=== PATIENT | male | born 1945 | race Caucasian/White ===

== ENCOUNTER 2018-07-14 11:39 | Emergency (ER) | payer MEDICARE, BC ==
[2018-07-14 11:55] VITALS: TEMP 98.2
[2018-07-14] MEDS ORDERED: SODIUM CHLORIDE 0.9% 1,000 ML IV STA (12:12)
--- NOTE | 2018-07-14 12:16 | ED ---
General Adult HPI - General Chief complaint: Recheck/Abnormal Lab/Rx Stated complaint: high blood sugar Source: patient Mode of arrival: EMS Limitations: no limitations - History of Present Illness Initial comments: Dictation was produced using [employer] dictation software. please excuse any grammatical, word or spelling errors. Chief Complaint: 73-year-old male presents with generalized weakness, elevated blood sugar and vision loss. History of Present Illness: Patient is 73-year-old male who recently had a ventral hernia surgery with mesh placement. Patient was put on a course of ciprofloxacin. Patient states he had a benign postoperative course. There was concern about possible infection along the lateral aspects of the surgery. He was put on a 7 day course of ciprofloxacin. Over the course of being on ciprofloxacin he complained of generalized weakness, vision loss. EMS was called for severe weakness and vision loss. Initial blood sugar was obtained showing above 600. Patient has history of diabetes however it's been well- controlled with dietary restrictions and basic medications. Patient states that yesterday his vision has been getting blurry. He is normally 20/20 vision. The ROS documented in this emergency department record has been reviewed and confirmed by me. Those systems with pertinent positive or negative responses have been documented in the HPI. All other systems are other negative and/or noncontributory. - Related Data Home Medications Medication Instructions Recorded Confirmed Alfuzosin HCl [Alfuzosin HCl ER] 10 mg PO DAILY 02/11/15 07/14/18 Atorvastatin [Lipitor] 40 mg PO HS 02/11/15 07/14/18 Eszopiclone [Lunesta] 3 mg PO HS 02/11/15 07/14/18 Fenofibrate Nanocrystallized 48 mg PO HS 02/11/15 07/14/18 [Fenofibrate] Montelukast [Singulair] 10 mg PO HS 02/11/15 07/14/18 Folic Acid 0.4 mg PO DAILY 02/12/15 07/14/18 Aspirin 81 mg PO DAILY 08/19/15 07/14/18 Acetaminophen Tab [Tylenol Tab] 1,000 mg PO Q6HR 07/14/18 07/14/18 Amiodarone [Cordarone] 200 mg PO Q12H 07/14/18 07/14/18 Co Q 10 50mg 1 cap PO DAILY 07/14/18 07/14/18 Diazepam [Valium] 5 mg PO Q8HR PRN 07/14/18 07/14/18 Metoprolol Succinate (ER) [Toprol 100 mg PO BID 07/14/18 07/14/18 Xl] Multivitamin,Therapeutic [Thera] 1 tab PO DAILY 07/14/18 07/14/18 Nitroglycerin Sl Tabs [Nitrostat] 0.4 mg SUBLINGUAL Q5M PRN 07/14/18 07/14/18 Polyethylene Glycol 3350 [Clearlax] 17 gm PO DAILY PRN 07/14/18 07/14/18 diphenhydrAMINE [Benadryl] 25 mg PO Q6HR PRN 07/14/18 07/14/18 hydrALAZINE HCL [Apresoline] 25 mg PO Q8H 07/14/18 07/14/18 metFORMIN HCL 1,000 mg PO BID 07/14/18 07/14/18 oxyCODONE HCL [OxyIR] 5 mg PO Q4H PRN 07/14/18 07/14/18 traMADol HCL [Ultram] 50 mg PO Q6HR PRN 07/14/18 07/14/18 Previous Rx's Medication Instructions Recorded Thiamine [Vitamin B-1] 100 mg PO DAILY@1200 #30 tab 02/22/15 Allergies Allergy/AdvReac Type Severity Reaction Status Date / Time Iodinated Contrast- Oral and Allergy Unknown Verified 07/14/18 12:06 IV Dye [Iodinated Contrast Media - IV Dye] Sulfa (Sulfonamide Allergy NAUSEA,VOMI Verified 07/14/18 12:06 Antibiotics) TING Review of Systems ROS Statement: Those systems with pertinent positive or pertinent negative responses have been documented in the HPI. ROS Other: All systems not noted in ROS Statement are negative. Past Medical History Past Medical History: Atrial Fibrillation, Coronary Artery Disease (CAD), Diabetes Mellitus, GERD/Reflux, Hearing Disorder / Deafness, Hyperlipidemia, Hypertension, Myocardial Infarction ([place]), Osteoarthritis (OA), Prostate Disorder , Seizure Disorder, Sleep Apnea/CPAP/BIPAP Additional Past Medical History / Comment(s): CPAP. RENAL CALCULI, LAST SEIZURE 1982 Last Myocardial Infarction Date:: 2004 History of Any Multi-Drug Resistant Organisms: None Reported Past Surgical History: Back Surgery, Heart Catheterization With Stent Additional Past Surgical History / Comment(s): REVERSAL OF COLOSTOMY. OTHER HX: Additional surgical hx: Kidney stone operation; multiple cystoscopies. Past Anesthesia/Blood Transfusion Reactions: No Reported Reaction Date of Last Stent Placement:: 2004 Past Psychological History: Anxiety Smoking Status: Former smoker - Past Family History Mother Family Medical History: No Reported History Father Family Medical History: Coronary Artery Disease (CAD) Daughter(s) Family Medical History: Hypertension Son(s) Family Medical History: Deep Vein Thrombosis (DVT) Brother(s) Family Medical History: Coronary Artery Disease (CAD), Diabetes Mellitus General Exam - General Exam Comments Initial Comments: PHYSICAL EXAM: General Impression: Alert and oriented x3, not in acute distress, pale HEENT: Normocephalic atraumatic, extra-ocular movements intact, pupils equal and reactive to light bilaterally, mucous membranes moist. Cardiovascular: Heart regular rate and rhythm, S1&S2 audible, no murmurs, rubs or gallops Chest: Lungs clear to auscultation bilaterally, no rhonchi, no wheeze, no rales Abdomen: Bowel sounds present, abdomen soft, non-tender, non-distended, no organomegaly, surgical site clean dry and intact, abdomen soft without any signs of erythema or fluctuant masses Musculoskeletal: Pulses present and equal in all extremities, no peripheral edema Motor: Moves all tremors grossly Neurological: CN II-XII grossly intact, no focal motor or sensory deficits noted Skin: Intact with no visualized rashes Psych: Normal affect and mood Limitations: no limitations Course Vital Signs 07/14/18 07/14/18 11:48 13:42 Temperature 98.2 F Pulse Rate 55 L 58 L Respiratory 16 18 Rate Blood Pressure 149/68 151/66 O2 Sat by Pulse 93 L 96 Oximetry Medical Decision Making - Medical Decision Making ED course: Patient is 73-year-old male with multiple comorbidities presents with vision loss, elevated blood sugar and generalized weakness. Patient was primary care physician's office yesterday were labs are performed with the sugar above 700. Vital signs are normal upon arrival. Patient appears stable at this time. Family requested to be transferred to [facility] where his primary surgeon who performed the recent hernia surgery is present. Discussed with family that we are capable of addressing this situation here at our facility however family requested transfer regardless. Laboratory evaluation obtained. CBC is unremarkable. Hemoglobin stable at 8.9. Blood gas is unremarkable. There is mild non-gap acidosis identified on folic panel. Potassium 5.2. Elevated renal markers with a creatinine of 1.75. Glucose 642. Urinalysis shows 4+ glucose. Patient's symptoms likely secondary to hyperglycemic hyper osmolar state. Discussed with patient that we can treat his condition here at our facility. Patient and family was very insistent that he be transferred to [facility] where his surgeon is located. Discussed with family and patient that we do not believe that this has anything to do with his surgical issue. Family insisted that he be transferred. Patient started on intravenous fluids. Patient be transferred to [facility]. EKG shows no acute processes. - Lab Data Result diagrams: 07/14/18 12:49 07/14/18 12:49 Lab Results 07/14/18 07/14/18 07/14/18 Range/Units 12:49 12:49 13:20 WBC 5.8 (3.8-10.6) k/uL RBC 3.33 L (4.30-5.90) m/uL Hgb 8.9 L (13.0-17.5) gm/dL Hct 30.4 L (39.0-53.0) % MCV 91.1 (80.0-100.0) fL MCH 26.7 (25.0-35.0) pg MCHC 29.3 L (31.0-37.0) g/dL RDW 17.1 H (11.5-15.5) % Plt Count 424 (150-450) k/uL Neutrophils % 68 % Lymphocytes % 21 % Monocytes % 5 % Eosinophils % 3 % Basophils % 1 % Neutrophils # 3.9 (1.3-7.7) k/uL Lymphocytes # 1.2 (1.0-4.8) k/uL Monocytes # 0.3 (0-1.0) k/uL Eosinophils # 0.2 (0-0.7) k/uL Basophils # 0.1 (0-0.2) k/uL Hypochromasia Marked Anisocytosis Slight VBG pH 7.31 (7.31-7.41) VBG pCO2 40 (37-51) mmHg VBG HCO3 20 L (24-28) mmol/L Sodium 144 (137-145) mmol/L Potassium 5.2 H (3.5-5.1) mmol/L Chloride 115 H (98-107) mmol/L Carbon Dioxide 20 L (22-30) mmol/L Anion Gap 9 mmol/L BUN 40 H (9-20) mg/dL Creatinine 1.75 H (0.66-1.25) mg/dL Est GFR (CKD-EPI)AfAm 44 (>60 ml/min/1.73 sqM) Est GFR (CKD-EPI)NonAf 38 (>60 ml/min/1.73 sqM) Glucose 642 H* (74-99) mg/dL Calcium 9.4 (8.4-10.2) mg/dL Magnesium 2.2 (1.6-2.3) mg/dL Urine Color Urine Appearance (Clear) Urine pH (5.0-8.0) Ur Specific [place] (1.001-1.035) Urine Protein (Negative) Urine Glucose (UA) (Negative) Urine Ketones (Negative) Urine Blood (Negative) Urine Nitrite (Negative) Urine Bilirubin (Negative) Urine Urobilinogen (<2.0) mg/dL Ur Leukocyte Esterase (Negative) 07/14/18 Range/Units 13:20 WBC (3.8-10.6) k/uL RBC (4.30-5.90) m/uL Hgb (13.0-17.5) gm/dL Hct (39.0-53.0) % MCV (80.0-100.0) fL MCH (25.0-35.0) pg MCHC (31.0-37.0) g/dL RDW (11.5-15.5) % Plt Count (150-450) k/uL Neutrophils % % Lymphocytes % % Monocytes % % Eosinophils % % Basophils % % Neutrophils # (1.3-7.7) k/uL Lymphocytes # (1.0-4.8) k/uL Monocytes # (0-1.0) k/uL Eosinophils # (0-0.7) k/uL Basophils # (0-0.2) k/uL Hypochromasia Anisocytosis VBG pH (7.31-7.41) VBG pCO2 (37-51) mmHg VBG HCO3 (24-28) mmol/L Sodium (137-145) mmol/L Potassium (3.5-5.1) mmol/L Chloride (98-107) mmol/L Carbon Dioxide (22-30) mmol/L Anion Gap mmol/L BUN (9-20) mg/dL Creatinine (0.66-1.25) mg/dL Est GFR (CKD-EPI)AfAm (>60 ml/min/1.73 sqM) Est GFR (CKD-EPI)NonAf (>60 ml/min/1.73 sqM) Glucose (74-99) mg/dL Calcium (8.4-10.2) mg/dL Magnesium (1.6-2.3) mg/dL Urine Color Yellow Urine Appearance Clear (Clear) Urine pH 6.5 (5.0-8.0) Ur Specific [place] 1.019 (1.001-1.035) Urine Protein Trace H (Negative) Urine Glucose (UA) 4+ H (Negative) Urine Ketones Negative (Negative) Urine Blood Negative (Negative) Urine Nitrite Negative (Negative) Urine Bilirubin Negative (Negative) Urine Urobilinogen <2.0 (<2.0) mg/dL Ur Leukocyte Esterase Negative (Negative) Disposition Clinical Impression: Hyperglycemia Disposition: OTHER INSTITUTION NOT DEFINED Condition: Fair Referrals: Chun Wahl MD [Primary Care Provider] - 1-2 days Time of Disposition: 14:06 - Out of Hospital Transfer - Req. Specs Out of Hospital Transfer - Requested Specifics: [facility]
[2018-07-14 13:10] LABS: RBC 3.33 m/uL (4.30-5.90); WBC 5.8 k/uL (3.8-10.6)
[2018-07-14 13:11] LABS: Anisocytosis Slight; Basophils # (A) 0.1 k/uL (0-0.2); Basophils % (A) 1 %; Eosinophils # (A) 0.2 k/uL (0-0.7); Eosinophils % (A) 3 %; HCT 30.4 % (39.0-53.0); HGB 8.9 gm/dL (13.0-17.5); Hypochromasia Marked; Lymphocytes # (A) 1.2 k/uL (1.0-4.8); Lymphocytes % (A) 21 %; MCH 26.7 pg (25.0-35.0); MCHC 29.3 g/dL (31.0-37.0); MCV 91.1 fL (80.0-100.0); Mean Platelet Volume 8.8; Monocytes # (A) 0.3 k/uL (0-1.0); Monocytes % (A) 5 %; Neutrophils # (A) 3.9 k/uL (1.3-7.7); Neutrophils % (A) 68 %; Platelet Count 424 k/uL (150-450); RDW 17.1 % (11.5-15.5)
[2018-07-14 13:33] LABS: Calcium 9.4 mg/dL (8.4-10.2); Magnesium 2.2 mg/dL (1.6-2.3); Potassium 5.2 mmol/L (3.5-5.1)
[2018-07-14 13:40] LABS: Appearance,Urine Clear (Clear); Bilirubin,Urine Negative (Negative); Blood,Urine Negative (Negative); Color,Urine Yellow; Glucose,Urine (UA) 4+ (Negative); Ketones,Urine Negative (Negative); Leukocyte Esterase,Urine Negative (Negative); Nitrite,Urine Negative (Negative); PH, Urine 6.5 (5.0-8.0); Protein,Urine Trace (Negative); Specific Gravity,Urine 1.019 (1.001-1.035); Urobilinogen,Urine <2.0 mg/dL (<2.0)
[2018-07-14 13:42] LABS: VBG PH 7.31 (7.31-7.41)
[2018-07-14] MEDS ORDERED: MORPHINE SULFATE 4 MG/ML SYRINGE IVP STA (15:09)
[2018-07-14 15:16] VITALS: BP 166/74; PULSE 59; RESP 16
== END 2018-07-14 15:45 | disposition other institution (70) ==
LOC: EC 11:39
DX: E11.65 Type 2 diabetes mellitus with hyperglycemia (principal); E87.2 Acidosis; I48.91 Unspecified atrial fibrillation; I25.10 Atherosclerotic heart disease of native coronary artery without angina pectoris; E78.5 Hyperlipidemia, unspecified; I10 Essential (primary) hypertension; I25.2 Old myocardial infarction; G47.30 Sleep apnea, unspecified; Z99.89 Dependence on other enabling machines and devices; Z95.5 Presence of coronary angioplasty implant and graft; Z87.891 Personal history of nicotine dependence; Z79.82 Long term (current) use of aspirin; Z79.84 Long term (current) use of oral hypoglycemic drugs; Z79.899 Other long term (current) drug therapy; Z91.041 Radiographic dye allergy status; Z88.2 Allergy status to sulfonamides
CPT/HCPCS: 99285; 96374; 96361; 36415; 93005; 80048; 82803; 83735; 85025; 81003; 87086; 83036; J2270

== ENCOUNTER → 2019-02-24 | Outpatient (CLI) | payer MEDICARE, BC ==
--- NOTE | 2019-02-24 07:23 | MR ---
EXAMINATION TYPE: MR brain wo con DATE OF EXAM: 02/24/2019 COMPARISON: None HISTORY: Slurred speech CONTRAST: Performed utilizing 0 mL intravenous Gadavist gadolinium contrast. TECHNIQUE: Multiplanar, multiecho imaging on a 3.0 Alejandra magnet is performed through the brain. Stud y is performed within 24 hours of arrival to the hospital. The craniovertebral junction is normal. The pituitary is normal. Optic chiasm is visualized is norm al. Flow-voids within the visualized intracranial cerebral vasculature. Diffusion-weighted imaging is performed. No abnormal hyperintensity is present to suggest an acute i ntracranial infarct or acute ischemic change. There are multiple hyperintensities scattered through the periventricular white matter and subcortica l regions. Largest is in the right centrum semiovale measuring 1.4 x 2.0 cm. Differential diagnosis c ould include but is not limited to chronic microvascular ischemic change, vasculitis, Lyme disease, m ultiple sclerosis. Ventricles and sulci are appropriate for the patient age. IMPRESSIONS: 1. Moderately extensive periventricular and subcortical white matter changes may be related to some m icrovascular ischemic change. No suspicious acute ischemic areas are evident.
== END | disposition home or self-care (01) ==
LOC: RADMRIMAIN 06:36
PROVIDERS: ATTEND Family Medicine
DX: R90.89 Other abnormal findings on diagnostic imaging of central nervous system (principal); R47.81 Slurred speech
CPT/HCPCS: 70551

== ENCOUNTER → 2019-02-28 | Outpatient (CLI) | payer MEDICARE, BC ==
--- NOTE | 2019-02-28 11:49 | US ---
EXAMINATION TYPE: US carotid duplex BILAT DATE OF EXAM: 02/28/2019 COMPARISON: NONE CLINICAL HISTORY: R47.81 Slurred Speech. EXAM MEASUREMENTS: RIGHT: Peak Systolic Velocity (PSV) cm/sec ----- Right CCA: 66.9 ----- Right ICA: 66.9 ----- Right ECA: 72.9 ICA/CCA ratio: 1.2 RIGHT: End Diastole cm/sec ----- Right CCA: 16.7 ----- Right ICA: 16.4 ----- Right ECA: 7.5 LEFT: Peak Systolic Velocity (PSV) cm/sec ----- Left CCA: 82.7 ----- Left ICA: 91.0 ----- Left ECA: 85.4 ICA/CCA ratio: 1.1 LEFT: End Diastole cm/sec ----- Left CCA: 16.4 ----- Left ICA: 28.2 ----- Left ECA: 7.5 VERTEBRALS (direction of flow): Right Vertebral: Antegrade Left Vertebral: Antegrade Rhythm: Normal Mild to moderate atherosclerotic changes seen. No significant velocity elevations. IMPRESSION: Degree of atherosclerotic grayscale plaquing within the right carotid bulb appears at le ast moderate however there are no elevated velocities to suggest hemodynamically significant stenosis bilaterally. CTA neck could be performed for more accurate assessment of degree of stenosis if clini ken indicated. Criteria for Assigning % of Stenosis / Diameter reduction (Estimation based on the indirect measurements of the internal carotid artery velocities (ICA PSV). 1. Normal (no stenosis)=ICA PSV < 125 cm/s: ratio < 2.0: ICA EDV<40 cm/s. 2. Less than 50% stenosis=ICA PSV < 125 cm/s: ratio < 2.0: ICA EDV<40 cm/s. 3. 50 to 69% stenosis=ICA PSV of 125 to 230 cm/s: ration 2.0 ? 4.0: ICA EDV 40-100 cm/s. 4. Greater than 70% stenosis to near occlusion= ICA PSV > 230 cm/s: ratio > 4.0: ICA EDV > 100 cm/s. 5. Near occlusion= ICA PSV velocities may be low or undetectable: variable ratio and ICA EDV. 6. Total occlusion=unable to detect flow.
== END | disposition home or self-care (01) ==
LOC: RADUSWWP 10:52
PROVIDERS: ATTEND Family Medicine
DX: I65.21 Occlusion and stenosis of right carotid artery (principal)
CPT/HCPCS: 93880

== ENCOUNTER 2019-09-25 15:36 | Emergency (ER) | payer BC, MEDICARE ==
[2019-09-25 15:45] VITALS: BP 195/79; TEMP 97.9
[2019-09-25] MEDS ORDERED: ACETAMINOPHEN TAB 325 MG TAB PO STA (16:30)
--- NOTE | 2019-09-25 16:34 | ED ---
General Adult HPI - General Chief complaint: Fall Stated complaint: fall, rt shoulder injury Time Seen by Provider: 09/25/19 16:12 Source: patient, RN notes reviewed Mode of arrival: ambulatory Limitations: no limitations - History of Present Illness Initial comments: 74-year-old male accompanied a past medical history presents to the emergency department for fall. Patient states he was trying to push a weight set that he bought for his grandson for Ping up a wooden ramp. States that he went to turn to walk away when he tripped over and fell on his right shoulder. Patient hit the right side of his head at that time. No loss of consciousness without days for a few minutes. States he can raise his arm on for him but cannot raise it to the side due to pain in his mid humerus exam to his right shoulder. He denies neck pain. He is also need to right anterior lower rib pain. Denies abdominal pain. Patient has no other complaints at this time including shortness of breath, chest pain, abdominal pain, nausea or vomiting, headache, or visual changes. - Related Data Home Medications Medication Instructions Recorded Confirmed Alfuzosin HCl [Alfuzosin HCl ER] 10 mg PO DAILY 02/11/15 07/14/18 Atorvastatin [Lipitor] 40 mg PO HS 02/11/15 07/14/18 Eszopiclone [Lunesta] 3 mg PO HS 02/11/15 07/14/18 Fenofibrate Nanocrystallized 48 mg PO HS 02/11/15 07/14/18 [Fenofibrate] Montelukast [Singulair] 10 mg PO HS 02/11/15 07/14/18 Folic Acid 0.4 mg PO DAILY 02/12/15 07/14/18 Aspirin 81 mg PO DAILY 08/19/15 07/14/18 Acetaminophen Tab [Tylenol Tab] 1,000 mg PO Q6HR 07/14/18 07/14/18 Amiodarone [Cordarone] 200 mg PO Q12H 07/14/18 07/14/18 Co Q 10 50mg 1 cap PO DAILY 07/14/18 07/14/18 Diazepam [Valium] 5 mg PO Q8HR PRN 07/14/18 07/14/18 Metoprolol Succinate (ER) [Toprol 100 mg PO BID 07/14/18 07/14/18 Xl] Multivitamin,Therapeutic [Thera] 1 tab PO DAILY 07/14/18 07/14/18 Nitroglycerin Sl Tabs [Nitrostat] 0.4 mg SUBLINGUAL Q5M PRN 07/14/18 07/14/18 Polyethylene Glycol 3350 [Clearlax] 17 gm PO DAILY PRN 07/14/18 07/14/18 diphenhydrAMINE [Benadryl] 25 mg PO Q6HR PRN 07/14/18 07/14/18 hydrALAZINE HCL [Apresoline] 25 mg PO Q8H 07/14/18 07/14/18 metFORMIN HCL 1,000 mg PO BID 07/14/18 07/14/18 oxyCODONE HCL [OxyIR] 5 mg PO Q4H PRN 07/14/18 07/14/18 traMADol HCL [Ultram] 50 mg PO Q6HR PRN 07/14/18 07/14/18 Previous Rx's Medication Instructions Recorded Thiamine [Vitamin B-1] 100 mg PO DAILY@1200 #30 tab 02/22/15 Allergies Allergy/AdvReac Type Severity Reaction Status Date / Time Iodinated Contrast Media Allergy Unknown Verified 09/25/19 15:46 [Iodinated Contrast Media - IV Dye] Sulfa (Sulfonamide Allergy NAUSEA,VOMI Verified 09/25/19 15:46 Antibiotics) TING Review of Systems ROS Statement: Those systems with pertinent positive or pertinent negative responses have been documented in the HPI. ROS Other: All systems not noted in ROS Statement are negative. Past Medical History Past Medical History: Atrial Fibrillation, Coronary Artery Disease (CAD), Diabetes Mellitus, GERD/Reflux, Hearing Disorder / Deafness, Hyperlipidemia, Hypertension, Myocardial Infarction ([place]), Osteoarthritis (OA), Prostate Disorder, Seizure Disorder, Sleep Apnea/CPAP/BIPAP Additional Past Medical History / Comment(s): CPAP. RENAL CALCULI, LAST SEIZURE 1981 Last Myocardial Infarction Date:: 2004 History of Any Multi-Drug Resistant Organisms: None Reported Past Surgical History: Back Surgery, Bowel Resection, Heart Catheterization With Stent Additional Past Surgical History / Comment(s): REVERSAL OF COLOSTOMY. OTHER HX: Additional surgical hx: Kidney stone operation; multiple cystoscopies. Past Anesthesia/Blood Transfusion Reactions: No Reported Reaction Date of Last Stent Placement:: 2004 Past Psychological History: Anxiety Smoking Status: Former smoker Past Alcohol Use History: None Reported Past Drug Use History: None Reported - Past Family History Mother Family Medical History: No Reported History Father Family Medical History: Coronary Artery Disease (CAD) Daughter(s) Family Medical History: Hypertension Son(s) Family Medical History: Deep Vein Thrombosis (DVT) Brother(s) Family Medical History: Coronary Artery Disease (CAD), Diabetes Mellitus General Exam Limitations: no limitations General appearance: alert, in no apparent distress Head exam: Present: atraumatic (I do not see any obvious contusion present), normocephalic, normal inspection Eye exam: Present: normal appearance, PERRL, EOMI. Absent: scleral icterus, conjunctival injection, periorbital swelling ENT exam: Present: normal exam, normal oropharynx, mucous membranes moist, normal external ear exam Neck exam: Present: normal inspection, full ROM. Absent: tenderness, meningismus, lymphadenopathy Respiratory exam: Present: normal lung sounds bilaterally. Absent: respiratory distress, wheezes, rales, rhonchi, stridor Cardiovascular Exam: Present: regular rate, normal rhythm, normal heart sounds. Absent: systolic murmur, diastolic murmur, rubs, gallop, clicks Extremities exam: Present: normal capillary refill (capillary refill less than 2 seconds, radial pulse 2+.), other (I do not see any significant contusion of the right shoulder). Absent: full ROM (pt has 90 flexion of the right shoulder, 30 degrees abduction,), tenderness (tenderness noted to proximal humerus as well as general shoulder, no step-off palpated), pedal edema, joint swelling, calf tenderness Neurological exam: Present: alert, oriented X3, CN II-XII intact, normal gait, other (GCS 15) Course Vital Signs 09/25/19 15:41 Temperature 97.9 F Pulse Rate 64 Respiratory 18 Rate Blood Pressure 195/79 O2 Sat by Pulse 96 Oximetry Medical Decision Making - Medical Decision Making Chest x-ray shows a normal heart, no active cardiopulmonary disease, no heart failure. This is improved inspiration compared to old exam. X-ray of the right humerus shows no acute abnormality. X-ray of the right shoulder shows evidence of calcific tendinitis without fracture seen. CT brain and C-spine without contrast shows cerebral atrophy without acute intracranial abnormality. No acute bony abnormality in the C-spine. Patient is not on blood thinners. patient likely is contusion of right shoulder. Patient will be discharged home. She will follow up with primary care in 1-2 days. He will return here if he has any worsening symptoms. Disposition Clinical Impression: Shoulder contusion Disposition: HOME SELF-CARE Condition: Good Instructions (If sedation given, give patient instructions): Shoulder Pain (ED) Additional Instructions: Please take motrin and tylenol for pain. Return to the ER if you have any worsening symptoms. Is patient prescribed a controlled substance at d/c from ED?: No Referrals: Chun Wahl MD [Primary Care Provider] - 1-2 days Time of Disposition: 17:47
--- NOTE | 2019-09-25 17:01 | CT ---
EXAMINATION TYPE: CT brain baljit banks con DATE OF EXAM: 09/25/2019 COMPARISON: None HISTORY: fall injury today CT DLP: 1402.7 mGycm Automated exposure control for dose reduction was used. Multiple axial sections were obtained of the brain without contrast. Multiple axial sections were obt ained from the skull base to T1 vertebra without contrast. FINDINGS: There is cerebral cortical atrophy. There is no mass effect nor midline shift. There is no sign of in tracranial hemorrhage. The calvarium is intact. Skull base is intact. There is no evidence of cerebra l edema. There is 5 mm anterior subluxation of C3 in relation to C4. There is hypertrophic facet arthropathy. There is 3 mm subluxation of C6 anterior to C7. There is no evidence of a fracture. The posterior richard ments are intact. There is atherosclerotic vascular calcification. I see no focal bone destruction. Impression Cerebral atrophy. No acute intracranial abnormality. Spondylotic changes in the cervical spine. Degenerative subluxation deformity at C3-4 and C6-7. No ac brayan bony abnormality. Atherosclerotic vascular disease.
[2019-09-25] MEDS ORDERED: HYDROcodone/APAP 5-325MG 1 EACH TAB PO STA (17:04)
--- NOTE | 2019-09-25 17:10 | XR ---
EXAMINATION TYPE: XR chest 2V DATE OF EXAM: 09/25/2019 COMPARISON: 06/17/2015 HISTORY: Short of breath TECHNIQUE: 2 views FINDINGS: Heart is normal. Lungs are clear of consolidation. Costophrenic angles are clear. There are sternal wires. There is osteopenia. There is no heart failure. IMPRESSION: Normal heart. No active cardiopulmonary disease. No heart failure. There is improved insp iration compared to old exam.
--- NOTE | 2019-09-25 17:11 | XR ---
EXAMINATION TYPE: XR humerus RT DATE OF EXAM: 09/25/2019 COMPARISON: NONE HISTORY: Arm pain TECHNIQUE: 3 views FINDINGS: I see no fracture nor dislocation. Shoulder joint and elbow joint appear intact. There is o steopenia. IMPRESSION: No acute abnormality of the right humerus.
--- NOTE | 2019-09-25 17:13 | XR ---
EXAMINATION TYPE: XR shoulder complete RT DATE OF EXAM: 09/25/2019 COMPARISON: NONE HISTORY: Shoulder pain TECHNIQUE: 3 views FINDINGS: There is some calcification at the greater tuberosity and in the subacromial joint space. T here is spurring at the glenohumeral joint. I see no fracture. IMPRESSION: There is evidence for calcific tendinitis. Osteoarthritis. No fracture seen.
[2019-09-25 18:01] VITALS: PULSE 57; RESP 20
== END 2019-09-25 18:01 | disposition home or self-care (01) ==
LOC: EC 15:36
DX: S40.011A Contusion of right shoulder, initial encounter (principal); M75.31 Calcific tendinitis of right shoulder; G31.9 Degenerative disease of nervous system, unspecified; I48.91 Unspecified atrial fibrillation; I25.10 Atherosclerotic heart disease of native coronary artery without angina pectoris; E11.9 Type 2 diabetes mellitus without complications; E78.5 Hyperlipidemia, unspecified; I10 Essential (primary) hypertension; I25.2 Old myocardial infarction; G47.30 Sleep apnea, unspecified; F41.9 Anxiety disorder, unspecified; Z79.82 Long term (current) use of aspirin; Z79.84 Long term (current) use of oral hypoglycemic drugs; Z79.899 Other long term (current) drug therapy; Z88.2 Allergy status to sulfonamides; Z91.041 Radiographic dye allergy status; Z95.5 Presence of coronary angioplasty implant and graft; Z99.89 Dependence on other enabling machines and devices; W01.198A Fall on same level from slipping, tripping and stumbling with subsequent striking against other object, initial encounter
CPT/HCPCS: 70450; 71046; 72125; 99284

== ENCOUNTER → 2021-03-06 | Outpatient (CLI) | payer MEDICARE ==
[2021-03-06 12:26] LABS: Appearance,Urine Clear (Clear); Bilirubin,Urine Negative (Negative); Blood,Urine Negative (Negative); Color,Urine Light Yellow; Glucose,Urine (UA) Negative (Negative); Ketones,Urine Negative (Negative); Leukocyte Esterase,Urine Negative (Negative); Nitrite,Urine Negative (Negative); PH, Urine 5.5 (5.0-8.0); Protein,Urine 1+ (Negative); RBC,Urine <1 /hpf (0-5); Specific Gravity,Urine 1.012 (1.001-1.035); Urobilinogen,Urine <2.0 mg/dL (<2.0); WBC,Urine <1 /hpf (0-5)
[2021-03-06 15:05] LABS: Basophils # (A) 0.05 X 10*3/uL (0.00-0.10); Basophils % (A) 0.8 %; Eosinophils # (A) 0.21 X 10*3/uL (0.04-0.35); Eosinophils % (A) 3.3 %; HCT 30.4 % (39.6-50.0); HGB 9.2 g/dL (13.0-17.0); Lymphocytes # (A) 1.99 X 10*3/uL (0.90-5.00); Lymphocytes % (A) 31.5 %; MCH 29.2 pg (27.0-32.0); MCHC 30.3 g/dL (32.0-37.0); MCV 96.5 fL (80.0-97.0); Mean Platelet Volume 11.6 fL (9.5-12.2); Monocytes # (A) 0.54 X 10*3/uL (0.20-1.00); Monocytes % (A) 8.5 %; Neutrophils # (A) 3.52 X 10*3/uL (1.80-7.70); Neutrophils % (A) 55.7 %; Platelet Count 169 X 10*3/uL (140-440); RBC 3.15 X 10*6/uL (4.40-5.60); RDW 13.7 % (11.5-14.5); WBC 6.32 X 10*3/uL (4.50-10.00)
[2021-03-07 05:01] LABS: Albumin 4.2 g/dL (3.80-4.90); Albumin/Globulin Ratio 1.62 (1.60-3.17); Anion Gap 10.5 mmol/L (4.00-12.00); Calcium 9.9 mg/dL (8.7-10.3); Carbon Dioxide 15.5 mmol/L (21.6-31.8); Globulin 2.6 g/dL (1.6-3.3); Magnesium 3.1 mg/dL (1.5-2.4); Non-African American GFR(CKD) 19.6 (60.0-200.0); Phosphorus 4.4 mg/dL (2.4-5.1); Potassium 6.4 mmol/L (3.5-5.5); Total Bilirubin 0.2 mg/dL (0.3-1.2); Total Protein 6.8 g/dL (6.2-8.2); Uric Acid 7.5 mg/dL (3.7-8.7)
[2021-03-07 05:41] LABS: African American GFR (CKD) 22.7 (60.0-200.0)
== END | disposition home or self-care (01) ==
LOC: LABWHC1 09:10
PROVIDERS: ATTEND Family Medicine
DX: N18.2 Chronic kidney disease, stage 2 (mild) (principal)
CPT/HCPCS: 36415; 80053; 81001; 83735; 83970; 84100; 84550; 85025

== ENCOUNTER → 2021-10-24 | Outpatient (CLI) | payer MEDICARE ==
[2021-10-24 11:19] LABS: Appearance,Urine Clear (Clear); Bilirubin,Urine Negative (Negative); Blood,Urine Negative (Negative); Color,Urine Yellow; Glucose,Urine (UA) 3+ (Negative); Ketones,Urine Negative (Negative); Leukocyte Esterase,Urine Negative (Negative); Nitrite,Urine Negative (Negative); PH, Urine 6.5 (5.0-8.0); Protein,Urine 1+ (Negative); Specific Gravity,Urine 1.015 (1.001-1.035); Urobilinogen,Urine <2.0 mg/dL (<2.0); WBC,Urine <1 /hpf (0-5)
[2021-10-24 11:59] LABS: Creatinine,Urine Random 77.4 mg/dL; Protein/Creatinine Ratio,Urine 1.382
[2021-10-24 14:32] LABS: Basophils # (A) 0.09 X 10*3/uL (0.00-0.10); Basophils % (A) 1.2 %; Eosinophils # (A) 0.34 X 10*3/uL (0.04-0.35); Eosinophils % (A) 4.6 %; HCT 30.5 % (39.6-50.0); HGB 9.4 g/dL (13.0-17.0); Lymphocytes # (A) 1.91 X 10*3/uL (0.90-5.00); Lymphocytes % (A) 25.6 %; MCH 28.6 pg (27.0-32.0); MCHC 30.8 g/dL (32.0-37.0); MCV 92.7 fL (80.0-97.0); Mean Platelet Volume 10.7 fL (9.5-12.2); Monocytes # (A) 0.82 X 10*3/uL (0.20-1.00); Neutrophils # (A) 4.27 X 10*3/uL (1.80-7.70); Neutrophils % (A) 57.3 %; Platelet Count 175 X 10*3/uL (140-440); RBC 3.29 X 10*6/uL (4.40-5.60); RDW 13.4 % (11.5-14.5); WBC 7.45 X 10*3/uL (4.50-10.00)
[2021-10-24 15:08] LABS: Protein, Total 6.9 g/dL (6.2-8.2)
[2021-10-24 17:27] LABS: Albumin 3.9 g/dL (3.8-4.9)
[2021-10-24 20:56] LABS: % Iron Saturation 14.47 (15.00-50.00); African American GFR (CKD) 16.6 (60.0-200.0); Anion Gap 23.7 mmol/L (10.00-18.00); BUN/Creat Ratio 17.12 Ratio (12.00-20.00); Blood Urea Nitrogen 66.1 mg/dL (9.0-27.0); Calcium 9.4 mg/dL (8.7-10.3); Magnesium 2.3 mg/dL (1.5-2.4); Non-African American GFR(CKD) 14.3 (60.0-200.0); Phosphorus 5.4 mg/dL (2.4-5.1); Potassium 5.3 mmol/L (3.5-5.5); Uric Acid 7.5 mg/dL (3.7-8.7)
== END | disposition home or self-care (01) ==
LOC: LABWHC1 10:18
PROVIDERS: ATTEND Internal Medicine Nephrology
DX: N25.81 Secondary hyperparathyroidism of renal origin (principal); E55.9 Vitamin D deficiency, unspecified; M10.9 Gout, unspecified; N39.0 Urinary tract infection, site not specified; D64.9 Anemia, unspecified; R80.9 Proteinuria, unspecified; N18.9 Chronic kidney disease, unspecified
CPT/HCPCS: 36415; 80048; 81001; 82040; 82306; 82570; 82728; 83540; 83550; 83735; 83970; 84100; 84156; 84165; 84550; 85025; 86334; 86335

== ENCOUNTER → 2021-12-10 | Outpatient (CLI) | payer MEDICARE ==
[2021-12-10 10:04] LABS: Basophils # (A) 0.09 X 10*3/uL (0.00-0.10); Basophils % (A) 1.2 %; Eosinophils # (A) 0.44 X 10*3/uL (0.04-0.35); Eosinophils % (A) 5.8 %; HCT 30.8 % (39.6-50.0); HGB 9.4 g/dL (13.0-17.0); Immature Grans, Automated 0.5 %; Lymphocytes # (A) 1.64 X 10*3/uL (0.90-5.00); Lymphocytes % (A) 21.5 %; MCH 27.9 pg (27.0-32.0); MCHC 30.5 g/dL (32.0-37.0); MCV 91.4 fL (80.0-97.0); Monocytes # (A) 0.72 X 10*3/uL (0.20-1.00); Monocytes % (A) 9.4 %; NRBC Per 100 WBC 0 /100 WBCS (0.0-0.0); Neutrophils # (A) 4.71 X 10*3/uL (1.80-7.70); Neutrophils % (A) 61.6 %; Platelet Count 171 X 10*3/uL (140-440); RBC 3.37 X 10*6/uL (4.40-5.60); RDW 14.7 % (11.5-14.5); WBC 7.64 X 10*3/uL (4.50-10.00)
[2021-12-10 10:13] LABS: African American GFR (CKD) 20.2 (60.0-200.0); Albumin 3.8 g/dL (3.8-4.9); Anion Gap 13.3 mmol/L (10.00-18.00); BUN/Creat Ratio 16.16 Ratio (12.00-20.00); Calcium 9.8 mg/dL (8.7-10.3); Carbon Dioxide 21.4 mmol/L (20.0-27.5); Non-African American GFR(CKD) 17.4 (60.0-200.0)
== END | disposition home or self-care (01) ==
LOC: LABWHC1 06:58
PROVIDERS: ATTEND Internal Medicine Nephrology
DX: N18.9 Chronic kidney disease, unspecified (principal); D64.9 Anemia, unspecified
CPT/HCPCS: 36415; 80048; 82040; 85025

== ENCOUNTER → 2022-02-02 | Outpatient (CLI) | payer MEDICARE ==
[2022-02-02 14:24] LABS: Basophils # (A) 0.06 X 10*3/uL (0.00-0.10); Eosinophils # (A) 0.22 X 10*3/uL (0.04-0.35); Eosinophils % (A) 3.6 %; HCT 28.9 % (39.6-50.0); HGB 8.8 g/dL (13.0-17.0); Immature Grans, Automated 0.5 %; Lymphocytes # (A) 1.66 X 10*3/uL (0.90-5.00); Lymphocytes % (A) 27.3 %; MCH 27.9 pg (27.0-32.0); MCHC 30.4 g/dL (32.0-37.0); MCV 91.7 fL (80.0-97.0); Mean Platelet Volume 10.9 fL (9.5-12.2); Monocytes # (A) 0.76 X 10*3/uL (0.20-1.00); Monocytes % (A) 12.5 %; NRBC Per 100 WBC 0 /100 WBCS (0.0-0.0); Neutrophils # (A) 3.36 X 10*3/uL (1.80-7.70); Neutrophils % (A) 55.1 %; Platelet Count 143 X 10*3/uL (140-440); RBC 3.15 X 10*6/uL (4.40-5.60); RDW 14.7 % (11.5-14.5); WBC 6.09 X 10*3/uL (4.50-10.00)
[2022-02-02 15:01] LABS: % Iron Saturation 12.8 (15.00-50.00); African American GFR (CKD) 12.8 (60.0-200.0); Albumin 4.1 g/dL (3.8-4.9); Anion Gap 15.6 mmol/L (10.00-18.00); BUN/Creat Ratio 16.98 Ratio (12.00-20.00); Blood Urea Nitrogen 81.5 mg/dL (9.0-27.0); Calcium 9.5 mg/dL (8.7-10.3); Carbon Dioxide 21.4 mmol/L (20.0-27.5); Phosphorus 5.2 mg/dL (2.4-5.1); Potassium 4.2 mmol/L (3.5-5.5)
== END | disposition home or self-care (01) ==
LOC: LABWHC1 07:25
PROVIDERS: ATTEND Internal Medicine Nephrology
DX: N18.9 Chronic kidney disease, unspecified (principal); D64.9 Anemia, unspecified
CPT/HCPCS: 36415; 80048; 82040; 82728; 83540; 83550; 84100; 85025

== ENCOUNTER 2022-03-05 22:57 | Emergency (ER) | payer MEDICARE ==
[2022-03-06] MEDS ORDERED: DICYCLOMINE 20 MG TAB PO STA (01:02)
[2022-03-06 01:36] LABS: Albumin 4.4 g/dL (3.5-5.0); Calcium 9.3 mg/dL (8.4-10.2); Potassium 3.8 mmol/L (3.5-5.1); Total Bilirubin 0.5 mg/dL (0.2-1.3); Total Protein 7.6 g/dL (6.3-8.2)
[2022-03-06 01:43] LABS: HCT 30.8 % (39.0-53.0); HGB 9.9 gm/dL (13.0-17.5); MCH 28.6 pg (25.0-35.0); MCHC 32.1 g/dL (31.0-37.0); MCV 89.3 fL (80.0-100.0); Mean Platelet Volume 8.6; Platelet Count 127 k/uL (150-450); RBC 3.44 m/uL (4.30-5.90); RDW 13.7 % (11.5-15.5); WBC 5.7 k/uL (3.8-10.6)
[2022-03-06 03:58] LABS: Eosinophils # (M) 0.17 k/uL (0-0.7); Lymphocytes # (M) 1.82 k/uL (1.0-4.8); Monocytes # (M) 0.46 k/uL (0-1.0); Neutrophils # (M) 3.25 k/uL (1.3-7.7); Neutrophils % (M) 57 %; Nucleated Red Blood Cells 0 /100 WBC (0-0); Total Cells Counted 100
[2022-03-06] MEDS ORDERED: DIAZEPAM 5 MG/ML 2 ML INJ IVP STA (03:58)
[2022-03-06 04:38] VITALS: PULSE 62; RESP 18
[2022-03-06] MEDS ORDERED: POTASSIUM BICARBONATE/CIT AC 20 MEQ TABLET.EFF PO ONE (05:16)
--- NOTE | 2022-03-06 05:25 | ED ---
General Adult HPI - General Chief complaint: Abdominal Pain Stated complaint: Kidney issues Time Seen by Provider: 03/05/22 23:04 Source: patient, EMS Mode of arrival: EMS Limitations: no limitations - History of Present Illness Initial comments: This patient is 76-year-old man who presents because he has had very intense muscle spasm following dialysis session. The patient recently started dialysis, this was his second session. He developed a calf cramp that was very severe. It did come on during the session and they did give a saline bolus. The patient went home and had recurrence of the cramp. No dyspnea. No chest pain. No fever or chills. -: hour(s) Location: lower extremity Radiation: non-radiation Quality: other (Severe spasm) Consistency: intermittent Improves with: none Worsens with: none Associated Symptoms: denies other symptoms Treatments Prior to Arrival: none - Related Data Home Medications Medication Instructions Recorded Confirmed Alfuzosin HCl [Alfuzosin HCl ER] 10 mg PO DAILY 02/11/15 11/20/21 Atorvastatin [Lipitor] 40 mg PO HS 02/11/15 11/20/21 Eszopiclone [Lunesta] 3 mg PO HS 02/11/15 11/20/21 Montelukast [Singulair] 10 mg PO HS 02/11/15 11/20/21 Folic Acid 0.4 mg PO DAILY 02/12/15 11/20/21 Aspirin 81 mg PO DAILY 08/19/15 11/20/21 Acetaminophen Tab [Tylenol Tab] 1,000 mg PO Q6HR 07/14/18 11/20/21 Co Q 10 50mg 1 cap PO DAILY 07/14/18 11/20/21 Metoprolol Succinate (ER) [Toprol 50 mg PO BID 07/14/18 11/20/21 Xl] Multivitamin,Therapeutic [Thera] 1 tab PO DAILY 07/14/18 11/20/21 Nitroglycerin Sl Tabs [Nitrostat] 0.4 mg SUBLINGUAL Q5M PRN 07/14/18 11/20/21 diphenhydrAMINE [Benadryl] 25 mg PO Q6HR PRN 07/14/18 11/20/21 polyethylene glycoL 3350 [Clearlax] 17 gm PO DAILY PRN 07/14/18 11/20/21 Alfuzosin HCl [Uroxatral] 1 tab PO DAILY 11/17/21 11/20/21 Dapagliflozin Propanediol [Farxiga] 1 tab PO DAILY 11/17/21 11/20/21 Previous Rx's Medication Instructions Recorded Thiamine [Vitamin B-1] 100 mg PO DAILY@1200 #30 tab 02/22/15 Potassium Chloride ER [K-Dur 10] 10 meq PO DAILY #20 tab 03/06/22 Allergies Allergy/AdvReac Type Severity Reaction Status Date / Time Iodinated Contrast Media Allergy Unknown Verified 11/20/21 11:13 [Iodinated Contrast Media - IV Dye] Sulfa (Sulfonamide Allergy NAUSEA,VOMI Verified 11/20/21 11:13 Antibiotics) TING Review of Systems ROS Statement: Those systems with pertinent positive or pertinent negative responses have been documented in the HPI. ROS Other: All systems not noted in ROS Statement are negative. Constitutional: Denies: fever, weakness Respiratory: Denies: cough, dyspnea Cardiovascular: Denies: chest pain, palpitations, edema, syncope Gastrointestinal: Denies: abdominal pain, vomiting, diarrhea Musculoskeletal: Reports: as per HPI, myalgia. Denies: back pain Skin: Denies: rash Neurological: Denies: headache, weakness, numbness Past Medical History Past Medical History: Atrial Fibrillation, Coronary Artery Disease (CAD), Diabetes Mellitus, GERD/Reflux, Hearing Disorder / Deafness, Hyperlipidemia, Hypertension, Myocardial Infarction (IA), Osteoarthritis (OA), Prostate Disorder, Renal Disease, Seizure Disorder, Sleep Apnea/CPAP/BIPAP Additional Past Medical History / Comment(s): CPAP. RENAL CALCULI, LAST SEIZURE 1982 Last Myocardial Infarction Date:: 2004 History of Any Multi-Drug Resistant Organisms: None Reported Past Surgical History: Back Surgery, Bowel Resection, Heart Catheterization With Stent Additional Past Surgical History / Comment(s): REVERSAL OF COLOSTOMY. OTHER HX: Additional surgical hx: Kidney stone operation; multiple cystoscopies. Past Anesthesia/Blood Transfusion Reactions: No Reported Reaction Date of Last Stent Placement:: 2004 Past Psychological History: Anxiety Smoking Status: Unknown if ever smoked - Past Family History Mother Family Medical History: No Reported History Father Family Medical History: Coronary Artery Disease (CAD) Daughter(s) Family Medical History: Hypertension Son(s) Family Medical History: Deep Vein Thrombosis (DVT) Brother(s) Family Medical History: Coronary Artery Disease (CAD), Diabetes Mellitus General Exam Limitations: no limitations General appearance: alert, in no apparent distress Head exam: Present: atraumatic, normocephalic Eye exam: Present: normal appearance. Absent: scleral icterus, conjunctival injection Respiratory exam: Present: normal lung sounds bilaterally. Absent: respiratory distress, wheezes, rales, rhonchi, stridor Cardiovascular Exam: Present: regular rate, normal rhythm, normal heart sounds. Absent: systolic murmur, diastolic murmur, rubs, gallop GI/Abdominal exam: Present: soft. Absent: distended, guarding, rebound, rigid Extremities exam: Present: normal inspection, normal capillary refill. Absent: pedal edema, calf tenderness Back exam: Present: normal inspection Neurological exam: Present: alert Skin exam: Present: warm, dry, intact, normal color. Absent: rash Course Vital Signs 03/05/22 03/05/22 03/06/22 22:59 23:07 03:03 Temperature 96.9 F L Pulse Rate 65 70 Pulse Rate [ 65 Hose Finisher ] Respiratory 20 Rate Blood Pressure 154/64 152/66 O2 Sat by Pulse 97 Oximetry 03/06/22 03/06/22 04:36 06:04 Temperature 97.9 F Pulse Rate 62 62 Pulse Rate [ Hose Finisher ] Respiratory 18 18 Rate Blood Pressure 131/64 131/61 O2 Sat by Pulse 97 94 L Oximetry Medical Decision Making - Medical Decision Making Patient's case is discussed with Dr. Britt who is covering tonight. She did request patient be given additional potassium. He is recommended to take a dose of potassium prior to dialysis session. He is to follow-up. We discussed return parameters and further care. - Lab Data Result diagrams: 03/05/22 23:00 03/05/22 23:00 Lab Results 03/05/22 03/05/22 03/05/22 Range/Units 23:00 23:00 23:00 WBC 5.7 (3.8-10.6) k/uL RBC 3.44 L (4.30-5.90) m/uL Hgb 9.9 L (13.0-17.5) gm/dL Hct 30.8 L (39.0-53.0) % MCV 89.3 (80.0-100.0) fL MCH 28.6 (25.0-35.0) pg MCHC 32.1 (31.0-37.0) g/dL RDW 13.7 (11.5-15.5) % Plt Count 127 L (150-450) k/uL MPV 8.6 Neutrophils % (Manual) 57 % Lymphocytes % (Manual) 32 % Monocytes % (Manual) 8 % Eosinophils % (Manual) 3 % Neutrophils # (Manual) 3.25 (1.3-7.7) k/uL Lymphocytes # (Manual) 1.82 (1.0-4.8) k/uL Monocytes # (Manual) 0.46 (0-1.0) k/uL Eosinophils # (Manual) 0.17 (0-0.7) k/uL Nucleated RBCs 0 (0-0) /100 WBC Manual Slide Review Performed Sodium 139 (137-145) mmol/L Potassium 3.8 (3.5-5.1) mmol/L Chloride 99 (98-107) mmol/L Carbon Dioxide 27 (22-30) mmol/L Anion Gap 13 mmol/L BUN 43 H (9-20) mg/dL Creatinine 2.93 H (0.66-1.25) mg/dL Est GFR (CKD-EPI)AfAm 23 (>60 ml/min/1.73 sqM) Est GFR (CKD-EPI)NonAf 20 (>60 ml/min/1.73 sqM) Glucose 92 (74-99) mg/dL Calcium 9.3 (8.4-10.2) mg/dL Total Bilirubin 0.5 (0.2-1.3) mg/dL AST 40 (17-59) U/L ALT 22 (4-49) U/L Alkaline Phosphatase 123 (38-126) U/L Troponin I 0.027 (0.000-0.034) ng/mL NT-Pro-B Natriuret Pep pg/mL Total Protein 7.6 (6.3-8.2) g/dL Albumin 4.4 (3.5-5.0) g/dL Coronavirus (PCR) (Not Detectd) 03/05/22 03/06/22 Range/Units 23:00 01:07 WBC (3.8-10.6) k/uL RBC (4.30-5.90) m/uL Hgb (13.0-17.5) gm/dL Hct (39.0-53.0) % MCV (80.0-100.0) fL MCH (25.0-35.0) pg MCHC (31.0-37.0) g/dL RDW (11.5-15.5) % Plt Count (150-450) k/uL MPV Neutrophils % (Manual) % Lymphocytes % (Manual) % Monocytes % (Manual) % Eosinophils % (Manual) % Neutrophils # (Manual) (1.3-7.7) k/uL Lymphocytes # (Manual) (1.0-4.8) k/uL Monocytes # (Manual) (0-1.0) k/uL Eosinophils # (Manual) (0-0.7) k/uL Nucleated RBCs (0-0) /100 WBC Manual Slide Review Sodium (137-145) mmol/L Potassium (3.5-5.1) mmol/L Chloride (98-107) mmol/L Carbon Dioxide (22-30) mmol/L Anion Gap mmol/L BUN (9-20) mg/dL Creatinine (0.66-1.25) mg/dL Est GFR (CKD-EPI)AfAm (>60 ml/min/1.73 sqM) Est GFR (CKD-EPI)NonAf (>60 ml/min/1.73 sqM) Glucose (74-99) mg/dL Calcium (8.4-10.2) mg/dL Total Bilirubin (0.2-1.3) mg/dL AST (17-59) U/L ALT (4-49) U/L Alkaline Phosphatase (38-126) U/L Troponin I (0.000-0.034) ng/mL NT-Pro-B Natriuret Pep 07223 pg/mL Total Protein (6.3-8.2) g/dL Albumin (3.5-5.0) g/dL Coronavirus (PCR) Not Detected (Not Detectd) Disposition Clinical Impression: Muscle spasm Disposition: HOME SELF-CARE Condition: Good Prescriptions: Potassium Chloride ER [K-Dur 10] 10 meq PO DAILY #20 tab Is patient prescribed a controlled substance at d/c from ED?: No Referrals: Chun Wahl MD [Primary Care Provider] - 1-2 days
[2022-03-06 06:05] VITALS: BP 131/61; TEMP 97.9
== END 2022-03-06 06:04 | disposition home or self-care (01) ==
LOC: EC 22:57
DX: M62.838 Other muscle spasm (principal); E11.9 Type 2 diabetes mellitus without complications; E78.5 Hyperlipidemia, unspecified; I10 Essential (primary) hypertension; I25.2 Old myocardial infarction; Z88.2 Allergy status to sulfonamides; Z91.041 Radiographic dye allergy status; Z20.822 Contact with and (suspected) exposure to COVID-19
CPT/HCPCS: 36415; 93005; 83880; 80053; 84484; 85025; 87635; 99284; 96374; J3360

== ENCOUNTER → 2022-04-15 | Outpatient (CLI) | payer MEDICARE ==
[2022-04-15 17:11] LABS: African American GFR (CKD) 25.6 (60.0-200.0); Anion Gap 11.7 mmol/L (10.00-18.00); BUN/Creat Ratio 8.22 Ratio (12.00-20.00); Blood Urea Nitrogen 22.2 mg/dL (9.0-27.0); Calcium 9.1 mg/dL (8.7-10.3); Carbon Dioxide 26.3 mmol/L (20.0-27.5); Non-African American GFR(CKD) 22.1 (60.0-200.0); Phosphorus 3.1 mg/dL (2.4-5.1)
[2022-04-15 17:27] LABS: Basophils # (A) 0.05 X 10*3/uL (0.00-0.10); Basophils % (A) 0.9 %; Eosinophils % (A) 3.6 %; HCT 35.1 % (39.6-50.0); HGB 10.1 g/dL (13.0-17.0); Immature Grans, Automated 0.5 %; Lymphocytes # (A) 1.54 X 10*3/uL (0.90-5.00); MCH 27.2 pg (27.0-32.0); MCHC 28.8 g/dL (32.0-37.0); MCV 94.6 fL (80.0-97.0); Mean Platelet Volume 12.9 fL (9.5-12.2); Monocytes # (A) 0.64 X 10*3/uL (0.20-1.00); Monocytes % (A) 11.6 %; NRBC Per 100 WBC 0 /100 WBCS (0.0-0.0); Neutrophils # (A) 3.04 X 10*3/uL (1.80-7.70); Neutrophils % (A) 55.4 %; Platelet Count 103 X 10*3/uL (140-440); RBC 3.71 X 10*6/uL (4.40-5.60); RDW 16.9 % (11.5-14.5)
[2022-04-16 01:06] LABS: Urine Creatinine 84.9 mg/dL (39.0-259.0)
== END | disposition home or self-care (01) ==
LOC: LABWHC1 07:48
PROVIDERS: ATTEND Internal Medicine Nephrology
DX: D64.9 Anemia, unspecified (principal); N18.9 Chronic kidney disease, unspecified; R80.9 Proteinuria, unspecified
CPT/HCPCS: 36415; 80048; 82043; 82570; 84100; 85025

== ENCOUNTER → 2023-02-01 | Outpatient (CLI) | payer MEDICARE ==
--- NOTE | 2023-02-01 15:54 | US ---
EXAMINATION TYPE: US kidneys/renal and bladder DATE OF EXAM: 02/01/2023 COMPARISON: CT 2014 CLINICAL INDICATION: Male, 77 years old with history of ESRD N18.6; EXAM MEASUREMENTS: Right Kidney: 8.1 x 4.1 x 5.6 cm Left Kidney: 8.5 x 4.4 x 4.5 cm Post Void Residual Volume: 29.6 mL Right Kidney: multiple hypoechoic areas with largest measuring 1.4cm Left Kidney: multiple hypoechoic areas with largest measuring 2.1cm Bladder: wnl Bilateral Jets seen: no Normal Post Void Residual: yes Small kidneys with increased cortical echogenicity with a few small simple thin-walled cysts scattere d throughout both kidneys. No hydronephrosis seen bilaterally. The urinary bladder is adequately dist ended. Bilateral ureteral jets are not seen. Small amount of residual urine after voiding. IMPRESSION: Evidence of chronic medical renal disease. No hydronephrosis seen bilaterally.
== END | disposition home or self-care (01) ==
LOC: RADUSWWP 15:05
PROVIDERS: ATTEND Internal Medicine Nephrology
DX: N18.6 End stage renal disease (principal); N28.89 Other specified disorders of kidney and ureter
CPT/HCPCS: 76770

== ENCOUNTER 2023-04-23 06:22 | Day surgery (SDC) | payer MEDICARE ==
[2023-04-23] MEDS ORDERED: LACTATED RINGERS 1,000 ML IV ONE (06:49)
[2023-04-23] MEDS ORDERED: PROPOFOL 10 MG/ML 20 ML VIAL IV ONE (07:06)
[2023-04-23] MEDS ORDERED: LIDOCAINE 2% INJ 20 MG/ML (2 ML VIAL) ONE (07:06)
[2023-04-23] MEDS ORDERED: ePHEDrine 50 MG/ML 1 ML VIAL ONE (07:06)
[2023-04-23 07:07] VITALS: RESP 16; TEMP 97.4
[2023-04-23 07:12] LABS: Glucose,Whole Blood 87 mg/dL (70-110)
[2023-04-23 08:13] VITALS: BP 109/53; PULSE 66
[2023-04-23 08:34] LABS: HCT 32.8 % (39.0-53.0); HGB 11.4 gm/dL (13.0-17.5); MCH 35.4 pg (25.0-35.0); MCHC 34.8 g/dL (31.0-37.0); MCV 101.6 fL (80.0-100.0); Macrocytosis Slight; RBC 3.22 m/uL (4.30-5.90); WBC 5.8 k/uL (3.8-10.6)
[2023-04-23 08:54] LABS: Platelet Count 63 k/uL (150-450)
[2023-04-23 08:56] LABS: Basophils # (M) 0.12 k/uL (0-0.2); Eosinophils # (M) 0.12 k/uL (0-0.7); Lymphocytes # (M) 1.22 k/uL (1.0-4.8); Monocytes # (M) 0.46 k/uL (0-1.0); Neutrophils # (M) 3.89 k/uL (1.3-7.7); Neutrophils % (M) 67 %; Nucleated Red Blood Cells 0 /100 WBC (0-0); Total Cells Counted 100
--- NOTE | 2023-04-23 13:51 | OP ---
OPERATIVE REPORT DATE OF SERVICE : PREOPERATIVE DIAGNOSES: Thrombocytopenia and bicytopenia. POSTOPERATIVE DIAGNOSES: Thrombocytopenia and bicytopenia. PROCEDURES PERFORMED: Bone marrow biopsy and aspiration of the right iliac crest under local and general sedation. DESCRIPTION OF PROCEDURE: Mr. Pinon was placed in the left lateral decubitus position with the right iliac crest exposed. Posterior superior iliac spine was palpated. After palpation, the area was prepped with 3 swabs of Betadine and 3 swabs of alcohol followed by placement of sterile draping. 10 mL of 1% lidocaine was applied to the periosteum as well as the subcutaneous skin. He was given general sedation prior to proceeding with local anesthesia. A 2 cm incision into the subcutaneous tissue was then made with an 11-inch Jamshidi needle advanced to the periosteum and advanced into the bone marrow with 16 mL of aspirate obtained containing spicules. Two additional passes were made to obtain core biopsy, which were unsuccessful. Third pass obtained 0.5 cm core biopsy. Mr. Pinon tolerated the procedure without complications. Pressure bandage was applied to the site. Aspirate and core biopsy will be sent for flow cytometry, FISH, cytogenetics, next generation sequencing as well as morphology. We will review the results in clinic. MMODL / IJN: [id number] /
== END 2023-04-23 08:41 | disposition home or self-care (01) ==
LOC: OR 06:22
PROVIDERS: ATTEND Internal Medicine
DX: D69.59 Other secondary thrombocytopenia (principal); E11.22 Type 2 diabetes mellitus with diabetic chronic kidney disease; N18.9 Chronic kidney disease, unspecified; Z90.89 Acquired absence of other organs; Z88.2 Allergy status to sulfonamides; I25.2 Old myocardial infarction; I25.10 Atherosclerotic heart disease of native coronary artery without angina pectoris; E78.5 Hyperlipidemia, unspecified; K21.9 Gastro-esophageal reflux disease without esophagitis; Z79.899 Other long term (current) drug therapy
CPT/HCPCS: 85025; 85045; 38222; J2704; J2001

== ENCOUNTER 2023-05-30 17:09 | Emergency (ER) | payer MEDICARE ==
[2023-05-30] MEDS ORDERED: SODIUM CHLORIDE 0.9% 500 ML 500 ML IV STA (17:17)
--- NOTE | 2023-05-30 18:21 | ED ---
Weakness HPI - General Chief complaint: Weakness Stated complaint: Hypotension Time Seen by Provider: 05/30/23 17:12 Source: patient, EMS Mode of arrival: EMS - History of Present Illness Initial comments: 77-year-old male with past medical history of end-stage renal disease on h emodialysis Wednesday, , Wednesday diverticulitis, A. fib not on any anticoagulation, seizure disorder who presents to the emergency department with weakness. Patient went to the bathroom and sat on the toilet for almost an hour because he was so weak. His attempted to help him off the toilet however he had no strength and therefore she was forced to call EMS. When they arrived they found that the patient had significant dark stools. They do admit that the patient has had previous ruptured diverticulitis requiring colostomy and then reversal. They deny history of ulcerative disease. He is not currently on any blood thinners. He did receive his dialysis treatment yesterday and had normal vital signs. He does make some urine. They report no fevers. The patient does not have any abdominal pain. No chest pain or shortness of breath. No other alleviating, precipitating or modifying factors - Related Data Home Medications Medication Instructions Recorded Confirmed Eszopiclone [Lunesta] 3 mg PO HS 02/11/15 05/30/23 Aspirin 81 mg PO DAILY 08/19/15 05/30/23 Nitroglycerin Sl Tabs [Nitrostat] 0.4 mg SUBLINGUAL Q5M PRN 07/14/18 05/30/23 Alfuzosin HCl [Uroxatral] 10 mg PO DAILY 11/17/21 05/30/23 ALPRAZolam [Xanax] 0.25 mg PO TID PRN 04/22/23 05/30/23 Potassium Chloride ER [K-Dur 10] 10 meq PO DAILY 04/22/23 05/30/23 Sodium Bicarbonate Tab 650 mg PO DAILY 04/22/23 05/30/23 Cephalexin [Keflex] 500 mg PO Q12HR 05/30/23 05/30/23 Folic Acid 1 mg PO DAILY 05/30/23 05/30/23 Furosemide [Lasix] 40 mg PO DAILY 05/30/23 05/30/23 Lidocaine-Prilocaine Cream [Emla 1 applic TOPICAL DAILY PRN 05/30/23 05/30/23 Cream 2.5%/2.5%] Metoprolol Succinate (ER) [Toprol 50 mg PO DAILY 05/30/23 05/30/23 Xl] Llzxklkc-Tomlsjqrn-Msrlttcb 1 applic RIGHT EYE BID 05/30/23 05/30/23 [Maxitrol Ophth Oint] Sevelamer Carbonate 1 packet PO BID-W/MEALS 05/30/23 05/30/23 Allergies Allergy/AdvReac Type Severity Reaction Status Date / Time Iodinated Contrast Media Allergy Unknown Verified 05/30/23 19:17 [Iodinated Contrast Media - IV Dye] Sulfa (Sulfonamide Allergy NAUSEA,VOMI Verified 05/30/23 19:17 Antibiotics) TING Review of Systems ROS Statement: Those systems with pertinent positive or pertinent negative responses have been documented in the HPI. ROS Other: All systems not noted in ROS Statement are negative. Past Medical History Past Medical History: Atrial Fibrillation, Coronary Artery Disease (CAD), Diabetes Mellitus, GERD/Reflux, Hearing Disorder / Deafness, Hyperlipidemia, Hypertension, Myocardial Infarction (NC), Osteoarthritis (OA), Renal Disease, Seizure Disorder, Sleep Apnea/CPAP/BIPAP Additional Past Medical History / Comment(s): CPAP. ESRD with hemodialysis //, fistula L arm/NO NEEDLES/BLOOD PRESSURE CUFF TO LEFT ARM, RENAL CALCULI, LAST SEIZURE 1981, NIDDM/normal A1C after starting dialysis, L ear OMAHA, blood pressure now running on the low side since starting dialysis, ruptured colon with surgery. Last Myocardial Infarction Date:: 2004 History of Any Multi-Drug Resistant Organisms: None Reported Past Surgical History: Back Surgery, Bowel Resection, Coronary Bypass/CABG, Heart Catheterization With Stent, Hernia Repair Additional Past Surgical History / Comment(s): L arm pig caratid artery/fistula for dialysis, colostomy with reversal, L abdominal hernia repair/mesh, kidney stone operation; multiple cystoscopies. Past Anesthesia/Blood Transfusion Reactions: No Reported Reaction Date of Last Stent Placement:: 2004 Past Psychological History: Anxiety Smoking Status: Former smoker, Unknown if ever smoked - Past Family History Mother Family Medical History: No Reported History Father Family Medical History: Coronary Artery Disease (CAD) Daughter(s) Family Medical History: Hypertension Son(s) Family Medical History: Deep Vein Thrombosis (DVT) Brother(s) Family Medical History: Coronary Artery Disease (CAD), Diabetes Mellitus General Exam Limitations: physical limitation (Heart of hearing) General appearance: alert Head exam: Present: atraumatic, normocephalic, normal inspection Eye exam: Present: normal appearance, PERRL, EOMI. Absent: scleral icterus, conjunctival injection, periorbital swelling ENT exam: Present: mucous membranes dry Neck exam: Present: normal inspection. Absent: tenderness, meningismus, lymphadenopathy Respiratory exam: Present: normal lung sounds bilaterally. Absent: respiratory distress, wheezes, rales, rhonchi, stridor Cardiovascular Exam: Present: normal rhythm, bradycardia, normal heart sounds. Absent: systolic murmur, diastolic murmur, rubs, gallop, clicks GI/Abdominal exam: Present: soft Rectal exam: Present: heme (+) stool, bloody stool, other (Significant melenic stools) Extremities exam: Present: full ROM, normal capillary refill, other (Dialysis access left upper extremity which has a palpable thrill). Absent: tenderness, pedal edema, joint swelling, calf tenderness Neurological exam: Present: alert Psychiatric exam: Present: agitated, flat affect Skin exam: Present: pallor Course Vital Signs 05/30/23 05/30/23 05/30/23 17:17 17:30 18:00 Temperature 97.9 F Pulse Rate 55 L 58 L 57 L Respiratory 19 22 20 Rate Blood Pressure 85/55 85/55 80/43 O2 Sat by Pulse 100 98 81 L Oximetry 05/30/23 05/30/23 05/30/23 18:30 19:00 19:30 Temperature Pulse Rate 57 L 53 L 54 L Respiratory 14 13 18 Rate Blood Pressure 90/53 107/40 91/37 O2 Sat by Pulse 93 L 99 97 Oximetry 05/30/23 05/30/23 05/30/23 20:00 20:20 20:30 Temperature 97.0 F L 97.1 F L Pulse Rate 53 L 50 L 49 L Respiratory 10 L 32 H 22 Rate Blood Pressure 80/32 97/39 97/39 O2 Sat by Pulse 94 L 100 Oximetry 05/30/23 05/30/23 20:50 21:00 Temperature 98.5 F Pulse Rate 56 L 57 L Respiratory 20 20 Rate Blood Pressure 99/44 99/44 O2 Sat by Pulse 100 90 L Oximetry Medical Decision Making - Medical Decision Making Was pt. sent in by a medical professional or institution (, ROSELIA, RESIDENTIAL PROGRAM MANAGER, urgent care, hospital, or [place] health care facility...) When possible be specific @ -No Did you speak to anyone other than the patient for history (EMS, parent, family, police, friend...)? What history was obtained from this source @ -I spoke with EMS in regards to the patient's history as well as his daughter and Did you review nursing and triage notes (agree or disagree)? Why? @ -I reviewed and agree with nursing and triage notes Were old charts reviewed (outside hosp., previous admission, EMS record, old EKG, old radiological studies, urgent care reports/EKG's, [place] health [facility] facility records)? Report findings @ -I reviewed the patient's recent record within the past few months in regards to his thrombocytopenia. Patient had a biopsy performed which did not demonstrate mild dysplastic syndrome Differential Diagnosis (chest pain, altered mental status, abdominal pain women, abdominal pain men, vaginal bleeding, weakness, fever, dyspnea, syncope, headache, dizziness, GI bleed, back pain, seizure, CVA, palpatations, mental health, musculoskeletal)? @ -Differential GI Bleed: Esophageal varices, aortoenteric fistula, Florence-Root, gastritis, peptic ulcer disease, diverticulosis, inflammatory bowel disease, hemorrhoids, fissure, colitis, malignancy, Meckels diverticulum, this is not meant to be an all- inclusive list. EKG interpreted by me (3pts min.). @ -Yes and demonstrates sinus bradycardia with a rate of 59. NH interval 194. QRS 202. QTC of 546. No acute ST segment elevations or depressions X-rays interpreted by me (1pt min.). @ -Yes and demonstrates some pulmonary vascular congestion CT interpreted by me (1pt min.). @ -None done U/S interpreted by me (1pt. min.). @ -None done What testing was considered but not performed or refused? (CT, X-rays, U/S, labs )? Why? @ -CT abdomen was considered however the patient does have significant GI bleeding without GI on staff and therefore patient will be sent outside institution with specialty capabilities What meds were considered but not given or refused? Why? @ -None Did you discuss the management of the patient with other professionals (professionals i.e. , ROSELIA, RESIDENTIAL PROGRAM MANAGER, lab, RT, psych nurse, forensic social worker, sterile supervisor, teacher, gift officer, case management coordinator)? Give summary @ -Spoke with Dr. Hobbs who agreed to accept transfer the patient. I did run the case by Dr. Michel, who is the on-call surgeon. States that he is not comfortable taking care of the patient due to his other medical conditions and degree of GI bleeding without GI specialist on staff Was smoking cessation discussed for >3mins.? @ -No Was critical care preformed (if so, how long)? @ -yes, 40 minutes Were there social determinants of health that impacted care today? How? (Homelessness, low income, unemployed, alcoholism, drug addiction, transpo rtation, low edu. Level, literacy, decrease access to med. care, retirement, rehab)? @ -No Was there de-escalation of care discussed even if they declined (Discuss DNR or withdrawal of care, Hospice)? DNR status @ -No What co-morbidities impacted this encounter? (DM, HTN, Smoking, COPD, CAD, Cancer, CVA, ARF, Chemo, Hep., AIDS, mental health diagnosis, sleep apnea, morbid obesity)? @ -End-stage renal disease, A. fib, diverticulitis Was patient admitted / discharged? Hospital course, mention meds given and route, prescriptions, significant lab abnormalities, going to OR and other pertinent info. @ -Upon arrival patient was placed into room 13. A thorough history and physical exam was performed. IV is established. Laboratory studies were conducted. Twelve-lead EKG is obtained. Laboratory studies are remarkable for hemoglobin of 7. This is a significant fall from the patient's previous hemoglobin of 11.4 which was done on April 23. Because he is active bleeding bleeding I did order type and screen and a unit of blood. Potassium is 66. He is given an albuterol breathing treatment, 10 units of insulin, an amp of dextrose and a dose of Lokelma. Chest x-ray demonstrates mild pulmonary vascular congestion. Blood pressures do improved. A second IV is established. Spoke with Dr. Obrien who is the patient's surgeon. States that he does not feel comfortable taking care of the patient as we do not GI services on staff. Patient was given 80 mg of Protonix. Patient requires transfer. Family does request [facility] as he does have a extension agent and a clinical support nurse on staff there. Accepting physician is Dr. Hobbs. COBRA forms are signed. Patient will be transferred with a guarded prognosis Undiagnosed new problem with uncertain prognosis? @ -yes Drug Therapy requiring intensive monitoring for toxicity (Heparin, Nitro, Insulin, Cardizem)? @ -No Were any procedures done? @ -No Diagnosis/symptom? @ -Acute GI bleed, hypotension, hyperkalemia, lactic acidosis Acute, or Chronic, or Acute on Chronic? @ -Acute Uncomplicated (without systemic symptoms) or Complicated (systemic symptoms)? @ -Complicated Side effects of treatment? @ -No Exacerbation, Progression, or Severe Exacerbation? @ -No Poses a threat to life or bodily function? How? (Chest pain, USA, NC, pneumonia, PE, COPD, DKA, ARF, appy, cholecystitis, CVA, Diverticulitis, Homicidal, Suicidal, threat to staff... and all critical care pts) @ -Yes there is a significant threat to life with the patient's current condition - Lab Data Result diagrams: 05/30/23 18:48 05/30/23 18:48 Lab Results 05/30/23 05/30/23 05/30/23 Range/Units 18:06 18:22 18:48 WBC 7.4 (3.8-10.6) k/uL RBC 2.10 L (4.30-5.90) m/uL Hgb 7.0 L D (13.0-17.5) gm/dL Hct 22.2 L (39.0-53.0) % MCV 105.5 H (80.0-100.0) fL MCH 33.3 (25.0-35.0) pg MCHC 31.6 (31.0-37.0) g/dL RDW 16.7 H (11.5-15.5) % Plt Count 66 L (150-450) k/uL MPV 12.5 Neutrophils % (Manual) 67 % Lymphocytes % (Manual) 22 % Monocytes % (Manual) 8 % Eosinophils % (Manual) 3 % Neutrophils # (Manual) 4.96 (1.3-7.7) k/uL Lymphocytes # (Manual) 1.63 (1.0-4.8) k/uL Monocytes # (Manual) 0.59 (0-1.0) k/uL Eosinophils # (Manual) 0.22 (0-0.7) k/uL Nucleated RBCs 0 (0-0) /100 WBC Hypochromasia Slight Anisocytosis Slight Macrocytosis Moderate PT (9.0-12.0) sec INR (<1.2) APTT (22.0-30.0) sec Sodium (137-145) mmol/L Potassium (3.5-5.1) mmol/L Chloride (98-107) mmol/L Carbon Dioxide (22-30) mmol/L Anion Gap mmol/L BUN (9-20) mg/dL Creatinine (0.66-1.25) mg/dL Est GFR (CKD-EPI)AfAm (>60 ml/min/1.73 sqM) Est GFR (CKD-EPI)NonAf (>60 ml/min/1.73 sqM) Glucose (74-99) mg/dL Lactic Ac Sepsis Rflx Plasma Lactic Acid Lisandro (0.7-2.0) mmol/L Calcium (8.4-10.2) mg/dL Magnesium (1.6-2.3) mg/dL Total Bilirubin (0.2-1.3) mg/dL AST (17-59) U/L ALT (4-49) U/L Alkaline Phosphatase (38-126) U/L Troponin I (0.000-0.034) ng/mL NT-Pro-B Natriuret Pep pg/mL Total Protein (6.3-8.2) g/dL Albumin (3.5-5.0) g/dL Stool Occult Blood Positive (Negative) Blood Type O Positive Blood Type Recheck O Pos Bld Type Recheck Status No Antibody Screen NEGATIVE Crossmatch See Detail Spec Expiration Date 06/02/2023 - 232105/30/23 05/30/23 05/30/23 Range/Units 18:48 18:48 18:48 WBC (3.8-10.6) k/uL RBC (4.30-5.90) m/uL Hgb (13.0-17.5) gm/dL Hct (39.0-53.0) % MCV (80.0-100.0) fL MCH (25.0-35.0) pg MCHC (31.0-37.0) g/dL RDW (11.5-15.5) % Plt Count (150-450) k/uL MPV Neutrophils % (Manual) % Lymphocytes % (Manual) % Monocytes % (Manual) % Eosinophils % (Manual) % Neutrophils # (Manual) (1.3-7.7) k/uL Lymphocytes # (Manual) (1.0-4.8) k/uL Monocytes # (Manual) (0-1.0) k/uL Eosinophils # (Manual) (0-0.7) k/uL Nucleated RBCs (0-0) /100 WBC Hypochromasia Anisocytosis Macrocytosis PT 17.1 H (9.0-12.0) sec INR 1.7 H (<1.2) APTT 28.3 (22.0-30.0) sec Sodium 136 L (137-145) mmol/L Potassium 6.6 H* (3.5-5.1) mmol/L Chloride 97 L (98-107) mmol/L Carbon Dioxide 28 (22-30) mmol/L Anion Gap 11 mmol/L BUN 93 H (9-20) mg/dL Creatinine 4.49 H (0.66-1.25) mg/dL Est GFR (CKD-EPI)AfAm 14 (>60 ml/min/1.73 sqM) Est GFR (CKD-EPI)NonAf 12 (>60 ml/min/1.73 sqM) Glucose 131 H (74-99) mg/dL Lactic Ac Sepsis Rflx Plasma Lactic Acid Lisandro 4.9 H* (0.7-2.0) mmol/L Calcium 8.2 L (8.4-10.2) mg/dL Magnesium 1.9 (1.6-2.3) mg/dL Total Bilirubin 1.1 (0.2-1.3) mg/dL AST 35 (17-59) U/L ALT 18 (4-49) U/L Alkaline Phosphatase 130 H (38-126) U/L Troponin I (0.000-0.034) ng/mL NT-Pro-B Natriuret Pep 9790 pg/mL Total Protein 5.4 L (6.3-8.2) g/dL Albumin 2.7 L (3.5-5.0) g/dL Stool Occult Blood (Negative) Blood Type Blood Type Recheck Bld Type Recheck Status Antibody Screen Crossmatch Spec Expiration Date 05/30/23 05/30/23 Range/Units 18:48 19:44 WBC (3.8-10.6) k/uL RBC (4.30-5.90) m/uL Hgb (13.0-17.5) gm/dL Hct (39.0-53.0) % MCV (80.0-100.0) fL MCH (25.0-35.0) pg MCHC (31.0-37.0) g/dL RDW (11.5-15.5) % Plt Count (150-450) k/uL MPV Neutrophils % (Manual) % Lymphocytes % (Manual) % Monocytes % (Manual) % Eosinophils % (Manual) % Neutrophils # (Manual) (1.3-7.7) k/uL Lymphocytes # (Manual) (1.0-4.8) k/uL Monocytes # (Manual) (0-1.0) k/uL Eosinophils # (Manual) (0-0.7) k/uL Nucleated RBCs (0-0) /100 WBC Hypochromasia Anisocytosis Macrocytosis PT (9.0-12.0) sec INR (<1.2) APTT (22.0-30.0) sec Sodium (137-145) mmol/L Potassium (3.5-5.1) mmol/L Chloride (98-107) mmol/L Carbon Dioxide (22-30) mmol/L Anion Gap mmol/L BUN (9-20) mg/dL Creatinine (0.66-1.25) mg/dL Est GFR (CKD-EPI)AfAm (>60 ml/min/1.73 sqM) Est GFR (CKD-EPI)NonAf (>60 ml/min/1.73 sqM) Glucose (74-99) mg/dL Lactic Ac Sepsis Rflx Y Plasma Lactic Acid Lisandro (0.7-2.0) mmol/L Calcium (8.4-10.2) mg/dL Magnesium (1.6-2.3) mg/dL Total Bilirubin (0.2-1.3) mg/dL AST (17-59) U/L ALT (4-49) U/L Alkaline Phosphatase (38-126) U/L Troponin I 0.028 (0.000-0.034) ng/mL NT-Pro-B Natriuret Pep pg/mL Total Protein (6.3-8.2) g/dL Albumin (3.5-5.0) g/dL Stool Occult Blood (Negative) Blood Type Blood Type Recheck Bld Type Recheck Status Antibody Screen Crossmatch Spec Expiration Date Disposition Clinical Impression: GI bleed, ESRD (end stage renal disease) on dialysis, Hyperkalemia, Bradycardia, Lactic acid acidosis Disposition: OTHER INSTITUTION NOT DEFINED Condition: Serious Is patient prescribed a controlled substance at d/c from ED?: No Referrals: Raheem Manzo MD [Primary Care Provider] - 1-2 days Time of Disposition: 21:17 - Out of Hospital Transfer - Req. Specs Out of Hospital Transfer - Requested Specifics: Other Emergency Center ([facility]
--- NOTE | 2023-05-30 18:36 | XR ---
EXAMINATION TYPE: XR chest 2V DATE OF EXAM: 05/30/2023 6:28 PM COMPARISON: Chest radiographs from 11/11/2022 TECHNIQUE: XR chest 2V Frontal and lateral views of the chest. CLINICAL INDICATION:Male, 77 years old with history of Weakness; FINDINGS: Lungs/Pleura: There is no evidence of pleural effusion, focal consolidation, or pneumothorax. Pulmonary vascularity: Pulmonary vascular congestion. Heart/mediastinum: Cardiomediastinal silhouette is enlarged and stable. Musculoskeletal: No acute osseous pathology. Midline sternotomy wires are noted. IMPRESSION: Cardiomegaly and mild pulmonary vascular congestion. Correlate with BNP for congestive heart failure.
[2023-05-30 19:06] LABS: Anisocytosis Slight; HCT 22.2 % (39.0-53.0); Hypochromasia Slight; MCH 33.3 pg (25.0-35.0); MCHC 31.6 g/dL (31.0-37.0); MCV 105.5 fL (80.0-100.0); Macrocytosis Moderate; Mean Platelet Volume 12.5; RDW 16.7 % (11.5-15.5); WBC 7.4 k/uL (3.8-10.6)
[2023-05-30 19:16] LABS: Platelet Count 66 k/uL (150-450)
[2023-05-30 19:20] LABS: ALT 18 U/L (4-49); AST 35 U/L (17-59); African American GFR (CKD) 14 (>60 ml/min/1.73 sqM); Albumin 2.7 g/dL (3.5-5.0); Alkaline Phosphatase 130 U/L (38-126); Anion Gap 11 mmol/L; Blood Urea Nitrogen 93 mg/dL (9-20); Calcium 8.2 mg/dL (8.4-10.2); Carbon Dioxide 28 mmol/L (22-30); Chloride 97 mmol/L (98-107); Glucose 131 mg/dL (74-99); INR 1.7 (<1.2); Magnesium 1.9 mg/dL (1.6-2.3); Non-African American GFR(CKD) 12 (>60 ml/min/1.73 sqM); Partial Thromboplastin Time 28.3 sec (22.0-30.0); Prothrombin Time 17.1 sec (9.0-12.0); Sodium 136 mmol/L (137-145); Total Bilirubin 1.1 mg/dL (0.2-1.3); Total Protein 5.4 g/dL (6.3-8.2)
[2023-05-30 19:28] LABS: NT-Pro-B-Type Natriuretic Pept 9790 pg/mL
[2023-05-30 19:45] LABS: Potassium 6.6 mmol/L (3.5-5.1)
[2023-05-30] MEDS ORDERED: ONDANSETRON 4 MG/2 ML VIAL IVP STA (19:55)
[2023-05-30] MEDS ORDERED: DEXTROSE 50% SYRINGE 50 ML IVP STA (20:01)
[2023-05-30] MEDS ORDERED: INSULIN REGULAR 100 UNIT/ML VIAL (IV) IV ONE (20:02)
[2023-05-30] MEDS ORDERED: ALBUTEROL NEBULIZED 2.5 MG/3 ML INHALATION STA (20:04)
[2023-05-30] MEDS ORDERED: PANTOPRAZOLE 40 MG/10 ML VIAL IVP STA (20:04)
[2023-05-30 20:41] VITALS: RESP 20
[2023-05-30 20:51] LABS: Eosinophils # (M) 0.22 k/uL (0-0.7); Lymphocytes # (M) 1.63 k/uL (1.0-4.8); Monocytes # (M) 0.59 k/uL (0-1.0); Neutrophils # (M) 4.96 k/uL (1.3-7.7); Neutrophils % (M) 67 %; Nucleated Red Blood Cells 0 /100 WBC (0-0); Total Cells Counted 100
[2023-05-30 20:56] VITALS: BP 99/44; TEMP 98.5
[2023-05-30 21:11] VITALS: PULSE 57
[2023-05-30] MEDS ORDERED: SODIUM ZIRCONIUM CYCLOSILICATE 10 GM PACKET PO ONE (21:12)
== END 2023-05-30 21:40 | disposition other institution (70) ==
LOC: EC 17:09
DX: K92.2 Gastrointestinal hemorrhage, unspecified (principal); R00.1 Bradycardia, unspecified; I95.9 Hypotension, unspecified; E11.22 Type 2 diabetes mellitus with diabetic chronic kidney disease; E78.5 Hyperlipidemia, unspecified; E87.20 Acidosis, unspecified; E87.5 Hyperkalemia; F41.9 Anxiety disorder, unspecified; G47.30 Sleep apnea, unspecified; I13.2 Hypertensive heart and chronic kidney disease with heart failure and with stage 5 chronic kidney disease, or end stage renal disease; I25.10 Atherosclerotic heart disease of native coronary artery without angina pectoris; I25.2 Old myocardial infarction; I48.91 Unspecified atrial fibrillation; M19.90 Unspecified osteoarthritis, unspecified site; I50.9 Heart failure, unspecified; N18.6 End stage renal disease; Z79.82 Long term (current) use of aspirin; Z79.899 Other long term (current) drug therapy; Z87.891 Personal history of nicotine dependence; Z99.2 Dependence on renal dialysis; Z88.2 Allergy status to sulfonamides; Z91.041 Radiographic dye allergy status
CPT/HCPCS: 99291; 96374; 96375 ×2; 36430; 36415; 94644; 86900; 86901; 83880; 80053; 83605; 83735; 84484; 85025; 85610; 85730; 86850; 86920; 82272; 71046; P9016; J2405; C9113; 96361